=== PATIENT | female | born 1960 | race Asian ===

== ENCOUNTER 2017-01-11 17:13 | Emergency (ER) | payer OTHER ==
[~2017-01-11] VITALS: Ht 152.4 cm; Wt 51.7 kg
[2017-01-11 17:29] VITALS: BP_SYST 119
[2017-01-11] MEDS ORDERED: KETOROLAC TROMETHAMINE 60 MG/2 ML VIAL IM ONE (19:45)
[2017-01-11 20:26] VITALS: BP_SYST 120
== END 2017-01-11 20:26 | disposition home or self-care (01) ==
LOC: SED 17:13
DX: M75.81 Other shoulder lesions, right shoulder (principal)
CPT/HCPCS: 73030; 96372; 99284; J1885